=== PATIENT | female | born 1955 | race Asian ===

== ENCOUNTER 2019-10-20 09:22 | Emergency (ER) | payer OTHER ==
[2019-10-20 09:27] VITALS: BP 161/83; PULSE 78; TEMP 98.1
--- NOTE | 2019-10-20 09:29 | PDOC ---
Rapid Medical Evaluation Time Seen by Provider: 10/20/19 09:25 Medical Evaluation: Allergies Allergy/AdvReac Type Severity Reaction Status Date / Time No Known Allergies Allergy Verified 01/30/14 12:56 10/20/19 09:26 COVID NOTE HPI: The patient is a 63 y/o female with medical history with htn and dyslipidemia, who presents for cough chest heaviness, and fever ( 100.8 this am) for 2 days. The patient has + exposure to coronavirus. daughter who lives in apt with her tested + for covid last week. 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 -Recent travel. She was sent from [facility] for covid testing. - difficulty breathing, shortness of breath, chest pain, lightheadedness, dizziness nausea, vomiting, and diarrhea. Other 12 point ROS reviewed and negative. EXAM: General: NAD, well-appearing, AAO x3. vss ENT: No rhinorrhea or nasal congestion. Neck: FROM, no midline tenderness Lungs: Clear to auscultation bilateral without wheezes rales or rhonchi. Normal excursion. Patient is able to speak in full sentences. Heart: Regular rate and rhythm, S1-S2 present, no murmurs rubs or gallops. Abdomen: Non-distended MSK/Extremities: no decreased ROM, no obvious deformities. No cyanosis Neuro: Normal gait, cranial nerves II through XII grossly intact. SKIN: No rashes, bruising. 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 Will order cxr and covid testing 10/20/19 09:57 cxr - discharge home and will remain on quarantine until results are received and discussed Discharge Disposition - Diagnosis COVID-19 - Discharge Dispostion Disposition: HOME Condition at time of disposition: Good - Referrals - Patient Instructions Printed Discharge Instructions: [facility]-Coronavirus Instructions, [facility] COVID-19 Isolation Protocol Additional Instructions: You were treated for possible [place] virus (COVID-19) You were tested today. Take Tylenol 500mg every 6 hours as needed for fever or pain You may take over the counter cough syrup. Follow the dosing instructions on the bottle. Warm tea, honey, and salt water gargles may help your symptoms. Please self quarantine until you receive results Return to the ER for shortness of breath, difficulty breathing, chest pain, or if you have any changes in your symptoms. - Post Discharge Activity
== END 2019-10-20 10:08 | disposition home or self-care (01) ==
LOC: JER 09:22
DX: R05 Cough (principal); R50.9 Fever, unspecified; Z20.828 Contact with and (suspected) exposure to other viral communicable diseases
CPT/HCPCS: 71045-TC-FY; 99283-25; U0002